=== PATIENT | male | born 1970 | race American Indian/Alaskan Native ===

== ENCOUNTER 2018-12-18 13:45 | Emergency (ER) | payer SELFPAY ==
[2018-12-18 13:55] VITALS: BP 159/109
--- NOTE | 2018-12-18 13:55 | Emergency Department Report ---
Blank Doc - Documentation Documentation: 48-year-old male that presents with chest congestion, cough and slight SOB. D enies any chest pain. This initial assessment/diagnostic orders/clinical plan/treatment(s) is/are subject to change based on patient's health status, clinical progression and re- assessment by fellow clinical providers in the ED. Further treatment and workup at subsequent clinical providers discretion. Patient/guardians urged not to elope from the ED as their condition may be serious if not clinically assessed and managed. Initial orders include: 1- Patient sent to [facility] for further evaluation and treatment 2- CXR
[2018-12-18] MEDS ORDERED: DECADRON PO ONE (14:49)
[2018-12-18] MEDS ORDERED: DUONEB *Not for PRN Use IH ONE (14:49)
--- NOTE | 2018-12-18 14:54 | Emergency Department Report ---
HPI - General Chief Complaint: Upper Respiratory Infection Time Seen by Provider: 12/18/18 13:54 - HPI HPI: 48-year-old male presents to the emergency department with complaint of some chest congestion, mixed dry and productive cough and some shortness of breath that he believes is a "cold" that has been going on for the past few days. Patient says that he actually has been feeling improved today and therefore went into work. However he says that he got some shortness of breath with exertion that caused him to come into the emergency department for further evaluation. He has not taken anything for his symptoms prior to presentation. No fever. No recent travel or sick contacts at home. No lower extremity edema, chest pain. He denies any tobacco use but does smoke marijuana. He does not have a primary care physician. ED Past Medical Hx - Past Medical History Previous Medical History?: No - Surgical History Past Surgical History?: No - Social History Smoking Status: Never Smoker Substance Use Type: Marijuana - Medications Home Medications: Home Medications Medication Instructions Recorded Confirmed Last Taken Type ALBUTEROL Inhaler (OR & NICU) 2 puff IH QID PRN #1 inhalation 12/18/18 Unknown Rx [ProAir HFA Inhaler] ED Review of Systems ROS: Stated complaint: SOB Other details as noted in HPI Comment: All other systems reviewed and negative Constitutional: denies: chills, fever Eyes: denies: eye pain, vision change ENT: denies: ear pain, throat pain Respiratory: cough, shortness of breath Cardiovascular: denies: chest pain, edema Gastrointestinal: denies: abdominal pain, vomiting Physical Exam - Physical Exam Vital Signs: Vital Signs 12/18/18 13:49 Temperature 98.8 F Pulse Rate 81 Respiratory 16 Rate Blood Pressure 159/109 O2 Sat by Pulse 95 Oximetry Physical Exam: GENERAL: The patient is well-developed well-nourished. HENT: Normocephalic. Atraumatic. Patient has moist mucous membranes. EYES: Extraocular motions are intact. NECK: Supple. Trachea is midline. CHEST/LUNGS: Mild expiratory wheezing. No tachypnea or accessory muscle use. A productive sounding cough heard during examination. There is no respiratory distress noted. HEART/CARDIOVASCULAR: Regular. There is no tachycardia. There is no murmur. ABDOMEN: Abdomen is soft, nontender. Patient has normal bowel sounds. There is no abdominal distention. SKIN: Skin is warm and dry. NEURO: The patient is awake, alert, and oriented. The patient is cooperative. The patient has no focal neurologic deficits. Normal speech. MUSCULOSKELETAL: There is no tenderness or deformity. There is no evidence of acute injury. ED Course Vital Signs 12/18/18 13:49 Temperature 98.8 F Pulse Rate 81 Respiratory 16 Rate Blood Pressure 159/109 O2 Sat by Pulse 95 Oximetry ED Medical Decision Making - Radiology Data Radiology results: image reviewed interpreted by me: Chest x-ray does not show any acute process. There are no pleural effusions, obvious pneumonia and there is no pneumothorax. - Medical Decision Making Patient presents to the emergency department with a few days of some upper respiratory symptoms and began having some shortness of breath with exertion today. On examination he has some mild expiratory wheezing heard. No signs of any respiratory distress. A chest x-ray was done that does not show any pneumonia, pleural effusions, pneumothorax, focal consolidation, or any other acute process. The patient was given a dose of Decadron and a breathing treatment. Upon reevaluation he is feeling improved. Vital signs stable throughout his ED course including being afebrile. He does have some hypertension but also is currently taking some [id number] stimulants while working out at the gym. We discussed avoiding this, avoiding caffeinated products and increased salt intake. The patient has been given a prescription for an albuterol inhaler and referrals for primary care. He will return to the ER with any worsening of his symptoms or any acute distress. - Differential Diagnosis asthma, pneumonia, bronchitis, viral URI Critical Care Time: No Critical care attestation.: If time is entered above; I have spent that time in minutes in the direct care of this critically ill patient, excluding procedure time. ED Disposition Clinical Impression: Elevated blood pressure reading, Bronchitis, Bronchospasm Disposition: DC-01 TO HOME OR SELFCARE Is pt being admited?: No Condition: Stable Instructions: Acute Bronchitis (ED) Additional Instructions: Please follow-up with a primary care physician in the next few days. Return to the emergency Department with any worsening of your symptoms or any acute distress. Prescriptions: ALBUTEROL Inhaler (OR & NICU) [ProAir HFA Inhaler] 2 puff IH QID PRN #1 inhalation PRN Reason: Shortness Of Breath Referrals: NARAYAN GARCIA MD [Staff Physician] - 2-3 Days [facility] [Outside] - 2-3 Days Forms: Accompanied Note, Work/School Release Form(ED) Time of Disposition: 15:46
--- NOTE | 2018-12-18 15:14 | XRay Report ---
CHEST 2 VIEWS INDICATION: cough. COMPARISON: None FINDINGS: Support devices: None. Heart: Within normal limits. Lungs/pleura: No acute air space or interstitial disease. No pneumothorax. Additional findings: None. IMPRESSION: No acute findings. Signer Name: Mitchell Sparrow Jr, MD Signed: 12/18/2018 3:09 PM Workstation Name: [id number]
== END 2018-12-18 16:05 | disposition home or self-care (01) ==
LOC: ED 13:45
DX: J98.01 Acute bronchospasm (principal); R03.0 Elevated blood-pressure reading, without diagnosis of hypertension; F12.10 Cannabis abuse, uncomplicated; Z79.899 Other long term (current) drug therapy
CPT/HCPCS: 71046; 94640; 99283; J8540; 94644